=== PATIENT | female | born 1990 | race Caucasian/White ===

== ENCOUNTER 2021-11-08 23:48 | Inpatient (IN) | payer BC ==
[2021-11-09] MEDS ORDERED: Tranexamic Acid 1,000 MG in Sodium Chloride 0.9% 100 ML IV PRN (01:59)
[2021-11-09] MEDS ORDERED: Butorphanol 1 MG/ML SDV IVPUSH PRN (01:59)
[2021-11-09] MEDS ORDERED: Lidocaine 1% 50 ML MDV INJECT PRN (01:59)
[2021-11-09] MEDS ORDERED: Water For Irrigation,Sterile 1,000 ML Container IRR PRN (01:59)
[2021-11-09] MEDS ORDERED: Methylergonovine 0.2 MG/1 ML Amp IM PRN (01:59)
[2021-11-09] MEDS ORDERED: Terbutaline 1 MG/ML SDV SUBCUT PRN (01:59)
[2021-11-09] MEDS ORDERED: Sodium Chloride 0.9% 20 ML SDV IV PRN (01:59)
[2021-11-09] MEDS ORDERED: Sodium Chloride 0.9% 10 ML Syringe FLUSH PRN (01:59)
[2021-11-09] MEDS ORDERED: Ondansetron 4 MG/2 ML SDV IVPUSH PRN (01:59)
[2021-11-09] MEDS ORDERED: Carboprost Tromethamine 250 MCG/1 ML Amp IM PRN (01:59)
[2021-11-09] MEDS ORDERED: Sodium Chloride 0.9% 2.5 ML Syringe FLUSH PRN (01:59)
[2021-11-09] MEDS ORDERED: Misoprostol 200 MCG Tab PO PRN (01:59)
[2021-11-09] MEDS ORDERED: Lactated Ringers 1,000 ML IV SCH (02:00)
[2021-11-09] MEDS ORDERED: Oxytocin/0.9 % Sodium Chloride 30 UNIT/500 ML BAG IV SCH ×2 (02:00)
[2021-11-09] MEDS ORDERED: Ropivacaine in NACL,ISO-OSM/PF 400 ML ONE (03:15)
[2021-11-09] MEDS ORDERED: ePHEDrine 50 MG/ML SDV IVPUSH PRN (03:31)
[2021-11-09] MEDS ORDERED: Ropivacaine HCl/PF 200 MG in Premix Bag 1 BAG EPIDUR SCH (03:45)
[2021-11-09] MEDS ORDERED: Benzocaine/Menthol 20%-0.5% Spray 78 GM Cannister TOP PRN (10:42)
[2021-11-09] MEDS ORDERED: Witch Hazel Medicated Pads 40/Jar TOP PRN (10:42)
[2021-11-09] MEDS ORDERED: Acetaminophen 500 MG Tab PO PRN ×2 (10:42)
[2021-11-09] MEDS ORDERED: Ibuprofen 400 MG Tab PO PRN (10:42)
[2021-11-09] MEDS ORDERED: Bisacodyl 10 MG Supp RECTAL PRN (10:42)
[2021-11-09] MEDS ORDERED: Lanolin 100% Cream 7 GM Tube TOP PRN (10:42)
[2021-11-09] MEDS ORDERED: oxyCODONE 5 MG Tab PO PRN (10:42)
[2021-11-09] MEDS: Ibuprofen 800 MG Tab PO PRN ×2 (10:57→17:27)
[2021-11-09] MEDS: Docusate Sodium 100 MG Cap PO PRN (13:27)
[2021-11-10] MEDS: Ibuprofen 800 MG Tab PO PRN ×2 (03:31→16:49)
[2021-11-10] MEDS: Docusate Sodium 100 MG Cap PO PRN (09:48)
[2021-11-11] MEDS: Ibuprofen 800 MG Tab PO PRN (06:16)
== END 2021-11-11 10:56 | disposition home or self-care (01) | DRG 560 ==
LOC: MW.OBCHECK 23:48 → MW.OB 11-09 00:19 → MW.OBCHECK 11-09 01:59 → OBSVTOIN 11-09 10:22 → MW.OB 11-09 14:31
PROVIDERS: ADMIT Obstetrics & Gynecology; ATTEND Obstetrics & Gynecology
PROC: 10E0XZZ Delivery of Products of Conception, External Approach (ICD-10-PCS; principal; 2021-11-09)
PROC: 3E0R3BZ Introduction of Anesthetic Agent into Spinal Canal, Percutaneous Approach (ICD-10-PCS; 2021-11-09)
PROC: 0HQ9XZZ Repair Perineum Skin, External Approach (ICD-10-PCS; 2021-11-09)
PROC: 00HU33Z Insertion of Infusion Device into Spinal Canal, Percutaneous Approach (ICD-10-PCS; 2021-11-09)
DX: O48.0 Post-term pregnancy (principal); Z3A.40 40 weeks gestation of pregnancy; Z37.0 Single live birth; O98.32 Other infections with a predominantly sexual mode of transmission complicating childbirth; A60.09 Herpesviral infection of other urogenital tract; O66.0 Obstructed labor due to shoulder dystocia; Z88.0 Allergy status to penicillin; Z20.822 Contact with and (suspected) exposure to COVID-19; O70.0 First degree perineal laceration during delivery
CPT/HCPCS: 36415; 51702; 59025; 59409; 85014; 85018; 85027; 86592; 86850; 86900; 86901; A9270-GY; J2405; J2590; J2795; J7120; U0002

== ENCOUNTER 2024-03-11 13:38 | Emergency (ER) | payer BC ==
[2024-03-11 14:24] LABS: BASOPHILS ABSOLUTE AUTO 0.06 K/uL (0.00-0.20); BASOPHILS PERCENT AUTO 0.7 % (0.0-1.0); EOSINOPHILS ABSOLUTE AUTO 0.37 K/uL (0.00-0.45); EOSINOPHILS PERCENT AUTO 4.6 % (0.0-6.0); HEMATOCRIT 40.5 % (37.0-47.0); HEMOGLOBIN 14.5 g/dL (12.0-16.0); IMMATURE GRAN ABSOLUTE AUTO 0.03 K/uL (0.00-0.05); IMMATURE GRAN PERCENT AUTO 0.4 % (0.0-0.4); LYMPHOCYTES ABSOLUTE AUTO 2.63 K/uL (1.00-4.80); LYMPHOCYTES PERCENT AUTO 32.5 % (24.0-44.0); MEAN CORPUSCULAR HEMOGLOBIN 33.3 pg (28.0-32.0); MEAN CORPUSCULAR HGB CONC 35.8 g/dL (32.0-36.0); MEAN CORPUSCULAR VOLUME 92.9 fL (83.0-99.0); MEAN PLATELET VOLUME 8.4 fL (9.4-12.3); MONOCYTES ABSOLUTE AUTO 0.56 K/uL (0.00-0.80); MONOCYTES PERCENT AUTO 6.9 % (0.0-8.0); NEUTROPHILS ABSOLUTE AUTO 4.45 K/uL (1.80-7.70); NEUTROPHILS PERCENT AUTO 54.9 % (41.0-71.0); PLATELET COUNT,PLT 292 K/uL (150-400); RED BLOOD CELL COUNT 4.36 M/uL (4.10-5.30)
[2024-03-11 14:59] LABS: A/G RATIO 1.2 (0.9-1.6); ALANINE AMINOTRANSFERASE,ALT 18 IU/L (14-63); ALBUMIN 3.8 g/dL (3.4-5.0); ALKALINE PHOSPHATASE 61 U/L (46-116); ASPARTATE AMNIOTRANSFERASE,AST 9 IU/L (15-37); BILIRUBIN TOTAL 0.4 mg/dL (0.2-1.0); BLOOD UREA NITROGEN,BUN 13 mg/dL (7.0-18.0); CALCIUM 8.8 mg/dL (8.5-10.1); CHLORIDE,CL 105 mmol/L (98-107); CREATININE 0.9 mg/dL (0.6-1.0); GLUCOSE RANDOM 115 mg/dL (74-106); POTASSIUM,K 3.9 mmol/L (3.5-5.1); PROTEIN TOTAL,TP 6.9 g/dL (6.4-8.2); SODIUM,NA 141 mmol/L (136-145)
[2024-03-11 15:00] LABS: ESTIMATED GFR 86 mL/min (>60)
[2024-03-11] MEDS: Benzonatate 100 MG Cap PO ONE (16:04)
[2024-03-11] MEDS: Doxycycline 100 MG Cap PO ONE (16:06)
[2024-03-11 16:20] LABS: APPEARANCE,URINE CLEAR; BILIRUBIN,URINE NEGATIVE (NEGATIVE); COLOR,URINE YELLOW; GLUCOSE,URINE NEGATIVE (NEGATIVE); KETONES,URINE NEGATIVE (NEGATIVE); LEUKOCYTE ESTERASE,URINE NEGATIVE (NEGATIVE); NITRITE,URINE NEGATIVE (NEGATIVE); OCCULT BLOOD,URINE NEGATIVE (NEGATIVE); PH,URINE 6.5 (5.0-8.0); PROTEIN,URINE NEGATIVE (NEGATIVE); UROBILINOGEN,URINE 0.2 EU/dL (<2.0)
[2024-03-11 16:24] LABS: CORONAVIRUS COVID-19 NAA NEGATIVE (NEGATIVE); INFLUENZA A NAA NEGATIVE (NEGATIVE); INFLUENZA B NAA NEGATIVE (NEGATIVE)
== END 2024-03-11 16:16 | disposition home or self-care (01) ==
LOC: MW.ED 13:38
DX: J40 Bronchitis, not specified as acute or chronic (principal); Z79.899 Other long term (current) drug therapy; Z88.0 Allergy status to penicillin; Z75.8 Other problems related to medical facilities and other health care
CPT/HCPCS: 0240U; 36415; 71045; 80053; 81003; 81025; 84484; 85025; 93005; 99285; A9270; 93010; 99283

== ENCOUNTER 2025-05-01 10:20 | Emergency (ER) | payer BC | END 2025-05-01 12:09 | disposition home or self-care (01) | LOC: MW.ED 10:20 | DX: J18.9 Pneumonia, unspecified organism (principal); Z88.0 Allergy status to penicillin; Z79.899 Other long term (current) drug therapy | CPT/HCPCS: 71046; 87428; 87651; 99283; A9270; J8540 ==